=== PATIENT | female | born 1950 | race Caucasian/White ===

== ENCOUNTER → 2017-03-27 | Outpatient (CLI) | payer MEDICARE, OTHER ==
[~2017-03-27] MED LIST: AMARYL DPS4 MG PO; ASA325 MG PO; CYMBALTA DPS60 MG PO; CYTOTEC DPS200 MCG PO; DAILY MULTIPLE1 EAC1 PO; DICLOFENAC SODI50 MG PO; DITROPAN-DPS5 MG PO; GLUCOPHAGE1000 MG PO; HUMALOG100 UNIT/1 SQ; LEVEMIR100 UNIT/1 SQ; LIPITOR DPS40 MG PO; LOVAZA1 GM PO; MIRALAX PACKET17 GM PO; OMEGA-31000 MG PO; OXY IR DPS5 MG PO; PROTONIX40 MG PO; SENOKOT S1 TAB PO; SYNTHROID75 MCG PO; TOLTERODINE TART4 MG PO; TYLENOL DPS325 MG PO; ULTRAM DPS50 MG PO; ZESTRIL DPS20 MG PO
== END | disposition home or self-care (01) ==
LOC: PTH.S 08:42
DX: Z01.818 Encounter for other preprocedural examination (principal); E11.9 Type 2 diabetes mellitus without complications

== ENCOUNTER 2017-04-06 06:30 | Inpatient (IN) | payer MEDICARE, OTHER ==
[~2017-04-06] VITALS: Ht 161.3 cm; Wt 101.6 kg
[~2017-04-06 06:30] MED LIST changes: -MIRALAX PACKET17 GM PO; -OMEGA-31000 MG PO; -OXY IR DPS5 MG PO; -PROTONIX40 MG PO; -SENOKOT S1 TAB PO; -TYLENOL DPS325 MG PO
--- NOTE | 2017-04-07 21:16 | OR ---
ADMIT: 04/06/2017 RM/LOC: 510 [facility] MR#: [id number] [facility]#: [id number] [address] [address] CESIA MARTIN [address] [place] [address] Operative/Delivery Room Report SEX: F AGE: 66 : 1950 SURGERY DATE: 04/06/2017 SURGEON: Chuck Parker MD PREOPERATIVE DIAGNOSES: 1. Left knee degenerative disease. 2. Possible nickel allergy. POSTOPERATIVE DIAGNOSES: 1. Left knee degenerative disease. 2. Possible nickel allergy. PROCEDURE: Aesculap total knee arthroplasty. INCOME AUDITOR: Nacho Gates PA-C ANESTHESIA: Spinal. COMPLICATIONS: None. ESTIMATED BLOOD LOSS: 100 mL. TOURNIQUET TIME: 53 minutes. COMPONENTS: 1. A size 4 narrow Aesculap femoral component. 2. A size 2 tibia. 3. A 4 patella. 4. A 10 mm posterior stabilized insert. DESCRIPTION OF THE PROCEDURE: The patient was taken to the operating room and the correct extremity was identified. The patient received a spinal anesthetic. The left lower extremity was prepped and draped in a standard fashion. The leg was exsanguinated and tourniquet inflated. An anterior incision was made and dissection was carried through the subcutaneous tissue. A medial parapatellar arthrotomy was performed. An appropriate medial release was performed. The patella was subluxed laterally. The infrapatellar fat pad was partially excised for exposure. At that point, the distal femur was opened up with a drill. We cut 12 mm off the distal femur in 5 degrees of valgus using an intramedullary guide. We then cut the tibia perpendicular to its long axis taking it flush with the affected side with an extramedullary guide. We then sized the femur to a size 4 and pinned this in appropriate external rotation aligning it with the epicondylar axis. We then made anterior, posterior, and chamfer cuts with the 4-in-1 cutting block. We opened up the joint space and removed the remaining posterior osteophytes, meniscus, and PCL ligament. We made our box cut centralizing the femoral component. The tibia was subluxed anteriorly, fit for a size 2 modular tibial tray, punched and drilled in appropriate external rotation. We then removed the remaining tibial osteophytes. We then cut the patella perpendicular to ADMIT: 04/06/2017 RM/LOC: 510 [facility] MR#: [id number] [address] [address] CESIA MARTIN [address] [place] [id number] Operative/Delivery Room Report SEX: F AGE: 66 : 1950 its long axis taking it flush with the lateral facet and fit it for a 4 mm oval patellar button restoring patellar height. We then extended the knee and opened the joint space to obtain posterior hemostasis and perform a posterior Exparel block. We then put in trial components with a 10 mm insert. At that point, we had full extension, full flexion, patella tracked centrally and no lateral release was required. The knee was also stable to varus and valgus stress testing. All trial components were removed and all the bony surfaces were Waterpik'd clean. We then cemented the tibia, femur, and patella in a standard fashion, put in the trial 4 insert and held the knee in extension. While the cement hardened, we completed our intra-articular Exparel block. Once the cement was hard, we deflated the tourniquet, obtained hemostasis, irrigated out the wound thoroughly, removed the trial insert and put in the real insert. The knee was again found to be stable with full range of motion. No Hemovac drain was used. At that point, the extensor mechanism was closed with an interrupted 0-Vicryl suture with the knee in flexion. The subcutaneous tissue was closed 2-0 Vicryl and mckayla were placed in the skin. Mepilex Border dressing was then applied. The patient was taken to the recovery room in stable condition with no complications. Chuck Parker MD/ buffy JOB #: [id number] CC: Chuck Parker, Attending Physician Margie Meier, Family Physician
[2017-04-09] MEDS ORDERED: OMEGA-31000 MG PO (13:49)
[2017-04-09] MEDS ORDERED: OXY IR DPS5 MG PO (13:55)
[2017-04-09] MEDS ORDERED: PROTONIX40 MG PO (13:56)
[2017-04-09] MEDS ORDERED: SENOKOT S1 TAB PO (13:56)
[2017-04-09] MEDS ORDERED: MIRALAX PACKET17 GM PO (13:56)
[2017-04-09] MEDS ORDERED: TYLENOL DPS325 MG PO (13:57)
--- NOTE | 2017-04-29 16:15 | HP ---
ADMIT: 04/06/2017 RM/LOC: W.02 [facility] MR#: [id number] [address] [address] CESIA MARTIN [address] [place] [address] Pre-OP History and Physical SEX: F AGE: 66 : 1950 DATE OF SERVICE: CHIEF COMPLAINT: Knee pain. HISTORY OF PRESENT ILLNESS: The patient is a 66-year-old female with a longstanding history of left knee pain. She has had a right knee replacement with good results. She has failed conservative care, now being admitted for left total knee arthroplasty. She does have a history of questionable metal allergy. She has done well with her other knee replacement. PAST MEDICAL HISTORY: Including diabetes, hypertension, hypothyroidism, and tobacco abuse. MEDICATIONS: Include: 1. Lisinopril. 2. Lovaza. 3. Glyburide. 4. Lipitor. 5. Glucophage. 6. Insulin. 7. Levothyroxine. 8. Diclofenac. 9. Aspirin. ALLERGIES: TO LASIX, MOBIC, AND QUESTIONABLE NICKEL. SOCIAL HISTORY: Denies any tobacco or alcohol use. Does smoke. REVIEW OF SYSTEMS: Negative. PHYSICAL EXAMINATION: On exam, healthy-appearing female. Walks with antalgic gait on the left lower extremity. Range of motion 5 to 110 degrees. No varus valgus instability. Patella tracks centrally. No pain in the hip. Leg is neurovascularly intact. ADMIT: 04/06/2017 RM/LOC: W.02 [facility] MR#: [id number] [address] [address] VERONICADAVIDCES[facility] A [address] [place], [place] [address] Pre-OP History and Physical SEX: F AGE: 66 : 1950 DIAGNOSTIC DATA: X-rays AP, lateral, PA flexion view shows advanced left knee arthritis. No joint space medially. IMPRESSION: 1. Advanced left knee degenerative disease. 2. Diabetes. 3. Possible metal allergy. PLAN: Talked about different options. She has failed conservative care. Plan on doing a left Aesculap prosthesis due to her history of metal allergy. She otherwise is aware of the risks, benefits, and options, agreed to proceed. She has been seen and cleared from a medical standpoint. Chuck Parker MD/ buffy JOB #: [id number] CC: Chuck Parker, Attending Physician UNKNOWN, Family Physician
--- NOTE | 2017-04-29 16:16 | DS ---
ADMIT: 04/06/2017 RM/LOC: 510 [facility] MR#: [id number] [facility]#: [id number] 2620 [facility] [address] [place], [place] [address] CESIA MARTIN [address] [place] [address] General Discharge Summary SEX: F AGE: 66 : 1950 ADMISSION DATE: 04/06/2017 DISCHARGE DATE: 04/08/2017 REASON FOR ADMISSION: Elective left total knee arthroplasty after failing conservative care. PREOPERATIVE DIAGNOSIS: Left knee degenerative joint disease. POSTOPERATIVE DIAGNOSIS: Left knee degenerative joint disease. PROCEDURE PERFORMED: Aesculap left total knee arthroplasty. SURGEON: Chuck Parker MD. ASPNET DEVELOPER: Nacho Gates PA-C ANESTHESIA: Spinal. COMPLICATIONS: None. ESTIMATED BLOOD LOSS: 100 mL. ACTIVE MEDICAL PROBLEMS: Type 2 diabetes mellitus, hypertension, osteoarthritis, and hyperlipidemia. HOSPITAL COURSE: The patient was admitted on 04/06/2017, for elective left total knee arthroplasty done by Dr. Parker without any complications. The patient tolerated the procedure well. On postoperative day #1, she suffered from some nausea and vomiting, which was treated with 4 mg of Zofran. This seemed to help as this was the only episode of nausea and vomiting that she had. As expected, she did suffer from some acute blood-loss anemia. Her hemoglobin dropped to 10.1 on 04/08/2017, but she remained hemodynamically stable and did not require blood transfusion. By postoperative day #2, she was safe, stable, and participating well with physical therapy. She was ready for discharge home with plans for outpatient physical therapy. DISCHARGE MEDICATIONS: 1. Metformin 1000 mg twice daily. 2. Oxybutynin ER 10 mg every day. 3. Morovis-3 acid 4 g in the evening. 4. Atorvastatin 40 mg in the evening. 5. Duloxetine 60 mg in the evening. 6. Misoprostol 200 mcg twice daily. 7. Glimepiride 4 mg twice daily. 8. Levothyroxine 75 mcg everyday. 9[address] D[address] 50 mg twice daily. 10.Lisinopril 20 mg every day. 11.Levemir 70 units at bedtime. 12.NovoLog sliding scale 3 times daily before meals. ADMIT: 04/06/2017 RM/LOC: 510 [facility] MR#: [id number] [address] [place] [id number] [place], [place] [address] CESIA MARTIN [address] [place] [id number] General Discharge Summary SEX: F AGE: 66 : 1950 13.Aspirin 325 mg at bedtime for 30 days. 14.Ultram 50 mg 2 tablets every 6 hours for 3 days. 15.Ultram 50 mg 1 to 2 tablets every 6 hours as needed for pain. 16.Oxycodone IR 5 mg 1 to 2 tablets every 4 to 6 hours as needed for breakthrough pain. 17.Protonix 40 mg at bedtime, take with aspirin for 30 days. 18.MiraLax 17 g daily as needed. 19.Senokot 2 tablets twice daily as needed. 20.Tylenol 650 mg every 4 to 6 hours as needed for pain. DISCHARGE INSTRUCTIONS: The patient was discharged home with plans for outpatient physical therapy per total knee arthroplasty protocol. Follow up in the orthopedic office in [place] with Dr. Parker in 1 week for a wound check, in 6 weeks with x-ray. Follow up with primary care as directed. SHELLEY Hong / Chuck Parker MD / buffy JOB #: [id number] CC: Chuck Parker MD, Attending Physician Margie Meier, Family Physician
== END 2017-04-08 15:50 | disposition home or self-care (01) | DRG 470 ==
LOC: WOR 06:30 → 5MS 06:30
PROVIDERS: ADMIT Orthopaedic Surgery
PROC: 0SRD0J9 Replacement of Left Knee Joint with Synthetic Substitute, Cemented, Open Approach (ICD-10-PCS; principal; 2017-04-06)
DX: M17.12 Unilateral primary osteoarthritis, left knee (principal); D62 Acute posthemorrhagic anemia; I10 Essential (primary) hypertension; E11.9 Type 2 diabetes mellitus without complications; E66.9 Obesity, unspecified; Z68.38 Body mass index [BMI] 38.0-38.9, adult; E78.5 Hyperlipidemia, unspecified; E03.9 Hypothyroidism, unspecified; Z79.82 Long term (current) use of aspirin; Z79.4 Long term (current) use of insulin; Z96.651 Presence of right artificial knee joint; Z87.891 Personal history of nicotine dependence